=== PATIENT | male | born 1940 | race Caucasian/White ===

== ENCOUNTER 2025-02-10 12:28 | Emergency (ER) | payer MEDICARE, OTHER ==
[2025-02-10] MEDS: Diphtheria,Pertussis(Acell),Tetanus Vaccine 0.5 ML Syringe IM ONE (13:39)
== END 2025-02-10 14:02 | disposition home or self-care (01) ==
LOC: DL.ED 12:28
DX: S61.216A Laceration without foreign body of right little finger without damage to nail, initial encounter (principal); Z23 Encounter for immunization; Z79.82 Long term (current) use of aspirin; Z79.84 Long term (current) use of oral hypoglycemic drugs; Z79.899 Other long term (current) drug therapy; W23.0XXA Caught, crushed, jammed, or pinched between moving objects, initial encounter
CPT/HCPCS: 64450; 73130-RT; 90471; 90715; 99282; 99283-25; A9270-GY; J0665